=== PATIENT | male | born 1965 | race Caucasian/White ===

== ENCOUNTER 2016-08-04 20:09 | Emergency (ER) | payer BC ==
[2016-08-04 20:24] VITALS: TEMP 98.2; BMI 37.1
--- NOTE | 2016-08-04 20:33 | PDOC ---
History of Present Illness - General History Source: Patient Exam Limitations: No Limitations - History of Present Illness Initial Comments: 08/04/16 21:14 The patient is a 52-year-old male, with no significant past medical history, who presents to the ED with weakness, dizziness, headache, and HTN. The patient states that he began feeling weak and dizzy yesterday but his symptoms progressively worsened today. Pt also reports experiencing shortness of breath and headache. He does admit that he does not drink enough water and only eats one meal a day for weight loss. Last meal was soup this morning. The patient denies any fever, chills, nausea, vomiting, diarrhea, or abdominal pain. The patient denies any chest pain. Family Hx: hypertension, hyperlipidemia, and diabetes. <Deidre Hernandez - Last Filed: 08/04/16 21:14> <Roya Lopez - Last Filed: 08/05/16 05:36> - General Chief Complaint: Shortness of Breath Stated Complaint: WEAK/DIFF BRETHING/DIZZY Time Seen by Provider: 08/04/16 20:33 Past History <Deidre Hernandez - Last Filed: 08/04/16 21:14> - Past Medical History Other medical history: None - Immunization History Immunization Up to Date: No - Psycho/Social/Smoking Cessation Hx Anxiety: No Suicidal Ideation: No Smoking History: Never smoked Have you smoked in the past 12 months: No Information on smoking cessation initiated: No Hx Alcohol Use: Yes Drug/Substance Use Hx: No Substance Use Type: Alcohol <Roya Lopez - Last Filed: 08/05/16 05:36> - Past Medical History Allergies/Adverse Reactions: Allergies Allergy/AdvReac Type Severity Reaction Status Date / Time No Known Allergies Allergy Verified 08/04/16 20:24 Home Medications: Ambulatory Orders NK [No Known Home Medication] 08/04/16 Review of Systems - Review of Systems Able to Perform ROS?: Yes Comments:: 08/04/16 21:15 CONSTITUTIONAL: Present: generalized weakness Absent: fever, chills, diaphoresis, malaise, loss of appetite HEENT: Absent: rhinorrhea, nasal congestion, throat pain, throat swelling, difficulty swallowing, mouth swelling, ear pain, eye pain, visual Changes CARDIOVASCULAR: Absent: chest pain, syncope, palpitations, irregular heart rate, lightheadedness , peripheral edema RESPIRATORY: Present: shortness of breath Absent: cough, dyspnea with exertion, orthopnea, wheezing, stridor, hemoptysis GASTROINTESTINAL: Absent: abdominal pain, abdominal distension, nausea, vomiting, diarrhea, constipation, melena, hematochezia GENITOURINARY: Absent: dysuria, frequency, urgency, hesitancy, hematuria, flank pain, genital pain MUSCULOSKELETAL: Absent: myalgia, arthralgia, joint swelling SKIN: Absent: rash, itching, pallor HEMATOLOGIC/IMMUNOLOGIC: Absent: easy bleeding, easy bruising, lymphadenopathy, frequent infections ENDOCRINE: Absent: unexplained weight gain, unexplained weight loss, heat intolerance, cold intolerance NEUROLOGIC: Present: headache, dizziness Absent: focal weakness or paresthesias, unsteady gait, seizure, mental status changes, bladder or bowel incontinence PSYCHIATRIC: Absent: anxiety, depression, suicidal or homicidal ideation, hallucinations. <Deidre Hernandez - Last Filed: 08/04/16 21:14> *Physical Exam - Vital Signs Last Vital Signs Temp Pulse Resp BP Pulse Ox 98.2 F 78 20 155/106 99 08/04/16 20:20 08/04/16 20:20 08/04/16 20:20 08/04/16 20:20 08/04/16 20:20 - Physical Exam Comments: 08/04/16 21:17 GENERAL: Awake and alert. No acute distress. HEENT: Normocephalic, atraumatic. PERRLA, EOMI. No conjunctival pallor. Sclera are non- icteric. Moist mucous membranes. Oropharynx is clear. NECK: Supple. Full ROM. No JVD. Carotid pulses 2+ and symmetric, without bruits. No thyromegaly. No lymphadenopathy. CARDIOVASCULAR: Regular rate and rhythm. No murmurs, rubs, or gallops. Distal pulses are 2+ and symmetric. PULMONARY: No evidence of respiratory distress. Lungs clear to auscultation bilaterally. No wheezing, rales or rhonchi. ABDOMINAL: Soft. Non-tender. Non-distended. No rebound or guarding. No organomegaly. Normoactive bowel sounds. MUSCULOSKELETAL Normal range of motion at all joints. No bony deformities or tenderness. No CVA tenderness. EXTREMITIES: No cyanosis. No clubbing. No edema. No calf tenderness. SKIN: Warm and dry. Normal capillary refill. No rashes. No jaundice. NEUROLOGICAL: Alert, awake, appropriate. <Deidre Hernandez - Last Filed: 08/04/16 21:14> - Vital Signs Last Vital Signs Temp Pulse Resp BP Pulse Ox 98.2 F 78 20 155/106 99 08/04/16 20:20 08/04/16 20:20 08/04/16 20:20 08/04/16 20:20 08/04/16 20:20 <Roya Lopez - Last Filed: 08/05/16 05:36> ED Treatment Course - LABORATORY CBC & Chemistry Diagram: 08/04/16 22:44 08/04/16 22:44 <Roya Lopez - Last Filed: 08/05/16 05:36> Medical Decision Making - Medical Decision Making 08/04/16 21:09 Pt comes with weakness, headache, dizziness, HTN. He is on a self imposed diet, eating only a meal a day and not drinking much food. He is overweight and has a fam hx of HTN, DM high cholesterol. Pt has no PMD. 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 Pt will have CXR, EkG and labs and I will treat with a dose of diovan in the ER. He will be asked to follow with Medicine clinic/PMD. 08/05/16 05:32 EKG demonstrates supraventriculat premature complexes. I explained to patient and his that he ought to remain for observation on telemetry due to his symptoms couple with the arrhythmia. Pt however feels much better and he wants to go home.. Pt admised to get a holter monitor. I explained to the patient that his blood pressure will be treated here, however I will not send him home with a prescription, as he must be diagnosed on 3 separate occasions with HTN. Pt will be asked to follow with cardiology and for holter monitoring. <Roya Lopez - Last Filed: 08/05/16 05:36> *DC/Admit/Observation/Transfer - Attestations Scribe Attestion: 08/04/16 21:18 Documentation prepared by Deidre Hernandez, acting as medical staff physician for Roya Lopez MD. <Deidre Hernandez - Last Filed: 08/04/16 21:14> - Discharge Dispostion Admit: No <Roya Lopez - Last Filed: 08/05/16 05:36> Diagnosis at time of Disposition: Atypical chest pain, Premature contractions, supraventricular - Discharge Dispostion Disposition: HOME Condition at time of disposition: Stable - Referrals Referrals: Mina Brewer MD [Staff Physician] - - Patient Instructions Printed Discharge Instructions: DI for Atypical Chest Pain, DI for Ambulatory Cardiac Monitoring
[2016-08-04] MEDS ORDERED: VALSARTAN 40 MG TABLET (FP) PO ONE (21:07)
[2016-08-04] MEDS ORDERED: VALSARTAN 80 MG TABLET (UD) ONE (22:41)
[2016-08-04 23:04] LABS: URINE APPEARANCE CLEAR; URINE BILIRUBIN NEGATIVE (NEGATIVE); URINE COLOR STRAW; URINE GLUCOSE (UA) NEGATIVE (NEGATIVE); URINE KETONE NEGATIVE (NEGATIVE); URINE LEUK ESTERASE NEGATIVE (NEGATIVE); URINE NITRITE NEGATIVE (NEGATIVE); URINE PROTEIN NEGATIVE (NEGATIVE); URINE UROBILINOGEN NEGATIVE E.U./dl (0.2-1.0)
[2016-08-04 23:04] LABS: BASOPHIL 0.7 % (0-2.0); EOSINOPHIL 1.3 % (0-4.5); MCH 29.5 pg (25.7-33.7); MCHC 32.8 g/dl (32.0-35.9); MEAN CELL VOLUME 89.7 fl (80-96); NEUTROPHILS 76.7 % (42.8-82.8); PLATELET COUNT 196 K/MM3 (134-434); RDW 13.6 % (11.9-15.9); WHITE BLOOD COUNT 10.2 K/mm3 (4.0-10.0)
[2016-08-04 23:22] LABS: URINE BLOOD 1+ (NEGATIVE)
[2016-08-04 23:23] LABS: INR 1.11 (0.82-1.09); PROTHROMBIN TIME (PATIENT) 12.2 SEC (9.98-11.88)
[2016-08-04 23:26] LABS: URINE MUCUS RARE; URINE RBC 2 /hpf (0-3); URINE WBC <1 /hpf (3-5)
[2016-08-04 23:29] LABS: ALBUMIN 3.5 g/dl (3.4-5.0); ANION GAP 12 (8-16); BILIRUBIN,TOTAL 0.4 mg/dL (0.2-1.0); CALCIUM 8.5 mg/dL (8.5-10.1); CO2 24 mmol/L (21-32); COCKROFT - GAULT 143.28; CREATININE 0.9 mg/dL (0.7-1.3); GLUCOSE,RANDOM 78 mg/dL (74-106); SGOT/AST 13 U/L (15-37); SGPT/ALT 20 U/L (12-78); TOT PROT 6.8 g/dl (6.4-8.2)
[2016-08-04 23:31] LABS: ALK PHOS 61 U/L (45-117); TROPONIN I < 0.02 ng/ml (0.00-0.05)
[2016-08-05 00:59] VITALS: BP 147/83; PULSE 75
--- NOTE | 2016-08-05 11:23 | EKG ---
Test Reason : Blood Pressure : / mmHG Vent. Rate : 063 BPM Atrial Rate : 063 BPM P-R Int : 152 ms QRS Dur : 094 ms QT Int : 420 ms P-R-T Axes : 053 060 051 degrees QTc Int : 429 ms SINUS RHYTHM WITH PREMATURE SUPRAVENTRICULAR COMPLEXES OTHERWISE NORMAL ECG NO PREVIOUS ECGS AVAILABLE Confirmed by BRYNN RODRIGUEZ, JIMMIE ([id number]) on 08/05/2016 11:23:04 AM Referred By: Confirmed By:JIMMIE SWAIN MD
== END 2016-08-05 01:00 | disposition home or self-care (01) ==
LOC: SUPCPDRO 20:09 → JER 20:09
DX: R07.89 Other chest pain (principal); I47.1 Supraventricular tachycardia
CPT/HCPCS: 36415; 71020-TC; 80053; 81003; 81015; 82465; 82550; 83880; 84478; 84484; 85025; 85610; 85730; 93005; 93010; 99282-25

== ENCOUNTER 2016-08-05 21:17 | Observation (INO) | payer BC ==
--- NOTE | 2016-08-05 21:50 | PDOC ---
History of Present Illness - General History Source: Patient Exam Limitations: No Limitations - History of Present Illness Initial Comments: 08/05/16 22:32 The patient is a 51 year old male, with no significant past medical history, who presents to the ED with weakness, dizziness, headache, and HTN. Patient was seen in the [facility] yesterday with the same complaint. As per , the patient has had a high BP of diastolic of 94. Patient reports occipital headache and neck pain during the episodes of dizziness. He reports 2 episodes of dizziness today. Patient states that he started to feel dizzy 3 days ago and it worsened on . The patient denies any fever, chills, nausea, vomiting, diarrhea, or abdominal pain. The patient denies any chest pain or palpitations. He denies visual changes or room spinning. Family Hx: [place] in 80s father. SH: non smoker <Lana Lindsey - Last Filed: 08/05/16 22:54> - General History Source: Patient, Family Exam Limitations: No Limitations <Brielle Barcenas - Last Filed: 08/05/16 23:55> - General Chief Complaint: Lightheaded Stated Complaint: WEAK/DIZZINESS/BP PROBLEM Time Seen by Provider: 08/05/16 21:23 Past History <Lana Lindsey - Last Filed: 08/05/16 22:54> - Immunization History Immunization Up to Date: No - Psycho/Social/Smoking Cessation Hx Anxiety: No Suicidal Ideation: No Smoking History: Never smoked Have you smoked in the past 12 months: No Hx Alcohol Use: Yes Drug/Substance Use Hx: No Substance Use Type: Alcohol <Brielle Barcenas - Last Filed: 08/05/16 23:55> - Past Medical History Allergies/Adverse Reactions: Allergies Allergy/AdvReac Type Severity Reaction Status Date / Time No Known Allergies Allergy Verified 08/05/16 22:22 Home Medications: Ambulatory Orders NK [No Known Home Medication] 08/04/16 Review of Systems - Review of Systems Able to Perform ROS?: Yes Comments:: 08/05/16 22:33 GENERAL/CONSTITUTIONAL: No: fever, chills, weakness, loss of appetite. HEAD, EYES, EARS, NOSE AND THROAT: No: change in vision, ear pain, discharge, sore throat, throat swelling. CARDIOVASCULAR: No: chest pain, palpitations, syncope RESPIRATORY: No: cough, shortness of breath, wheezing, hemoptysis, stridor. GASTROINTESTINAL: No: nausea, vomiting, abdominal cramping, diarrhea, rectal bleeding, constipation. GENITOURINARY: No: dysuria, hematuria, frequency, urgency, flank pain. MUSCULOSKELETAL: No: back pain, neck pain, joint pain, muscle swelling or pain SKIN: No: lesions, pallor, rash or easy bruising. NEUROLOGIC: +lightheadedness, headache No: vertigo, paresthesias, weakness ENDOCRINE: No: unexplained weight gain or loss HEMATOLOGIC/LYMPHATIC: No: anemia, easy bleeding, swelling nodes <Lana Lindsey - Last Filed: 08/05/16 22:54> *Physical Exam - Vital Signs Last Vital Signs Temp Pulse Resp BP Pulse Ox 98 F 76 18 161/90 99 08/05/16 21:27 08/05/16 21:27 08/05/16 21:27 08/05/16 21:27 08/05/16 21:27 - Physical Exam Comments: 08/05/16 22:34 GENERAL: The patient is in no acute distress. HEAD: Normal with no signs of trauma. EYES: PERRLA, EOMI, sclera anicteric, conjunctiva clear. ENT: Ears normal, nares patent, oropharynx clear without exudates. Moist mucous membranes. NECK: Normal range of motion, supple without lymphadenopathy, JVD, or masses. LUNGS: Breath sounds equal, clear to auscultation bilaterally. No wheezes, and no crackles. HEART: +Irregular rate and rhythm, normal S1 and S2 without murmur, rub or gallop. ABDOMEN: Soft, nontender, normoactive bowel sounds. No guarding, no rebound. EXTREMITIES: Normal range of motion, no edema. No clubbing or cyanosis. No erythema, or tenderness. NEUROLOGICAL: Cranial nerves II through XII grossly intact. Normal speech. No focal neurological deficits. MUSCULOSKELETAL: Back nontender to palpation, no CVA tenderness SKIN: Warm, Dry, normal turgor, no rashes or lesions noted. <Lana Lindsey - Last Filed: 08/05/16 22:54> - Vital Signs Last Vital Signs Temp Pulse Resp BP Pulse Ox 98 F 76 18 161/90 99 08/05/16 21:27 08/05/16 21:27 08/05/16 21:27 08/05/16 21:27 08/05/16 21:27 <Brielle Barcenas - Last Filed: 08/05/16 23:55> Heart Score/ECG Review #1 ECG reviewed & interpreted by me at: 23:12 General ECG Interpretation: Sinus Rhythm, Normal Rate, Normal Intervals, No acute ischemic changes <Brielle Barcenas - Last Filed: 08/05/16 23:55> ED Treatment Course - LABORATORY CBC & Chemistry Diagram: 08/05/16 22:01 08/05/16 22:01 - ADDITIONAL ORDERS Additional order review: 08/05/16 22:01 RBC 4.64 MCV 89.5 MCHC 33.2 RDW 13.2 MPV 9.4 Neutrophils % 76.7 Lymphocytes % 15.4 Monocytes % 5.7 Eosinophils % 1.3 Basophils % 0.9 <Lana Lindsey - Last Filed: 08/05/16 22:54> - LABORATORY CBC & Chemistry Diagram: 08/05/16 22:01 08/05/16 22:01 <Brielle Barcenas - Last Filed: 08/05/16 23:55> Medical Decision Making - Medical Decision Making 08/05/16 21:50 A portion of this note was documented by scribe services under my direction. I have reviewed the details of the note, within reason, and agree with the documentation with the following case summary and management plan written by me. Nursing documentation reviewed and incorporated into medical decision making This is a 51 yo M who presents to the ER again with a complaint of elevated blood pressure and dizziness Pt states his symptoms began 2 days ago He notes intermittent dizziness Today, he had 2 episodes No head trauma No tinnitus No vertigo Pt notes that he sometimes has dizziness 08/05/16 22:59 Laboratory Tests 08/04/16 08/04/16 08/05/16 22:44 22:44 22:01 WBC 10.2 H 8.7 Hgb 13.2 13.8 Hct 40.2 41.5 Plt Count 196 201 BUN 11 Creatinine 0.9 Creatine Kinase 65 Troponin I < 0.02 08/05/16 22:01 WBC Hgb Hct Plt Count BUN 11 Creatinine 0.9 Creatine Kinase 68 Troponin I < 0.02 08/05/16 23:12 Upon re assessment Pt states he has had a frontal headache since noon He took tylenol This has improved his symptoms 08/05/16 23:54 Case reviewed with hospitalist Will place on observation <Brielle Barcenas - Last Filed: 08/05/16 23:55> *DC/Admit/Observation/Transfer - Attestations Scribe Attestion: 08/05/16 22:34 Documentation prepared by JOHAN Sawyer, acting as biomedical engineering aide for Brielle Barcenas MD. <Lana Lindsey - Last Filed: 08/05/16 22:54> - Discharge Dispostion Admit: Yes <Brielle Barcenas - Last Filed: 08/05/16 23:55> Diagnosis at time of Disposition: Dizziness - Discharge Dispostion Condition at time of disposition: Stable
[2016-08-05 22:21] LABS: BASOPHIL 0.9 % (0-2.0); EOSINOPHIL 1.3 % (0-4.5); MCH 29.7 pg (25.7-33.7); MCHC 33.2 g/dl (32.0-35.9); MEAN CELL VOLUME 89.5 fl (80-96); MEAN PLT VOLUME 9.4 fl (7.5-11.1); NEUTROPHILS 76.7 % (42.8-82.8); PLATELET COUNT 201 K/MM3 (134-434); RDW 13.2 % (11.9-15.9); WHITE BLOOD COUNT 8.7 K/mm3 (4.0-10.0)
[2016-08-05 22:45] LABS: ALBUMIN 3.7 g/dl (3.4-5.0); ANION GAP 10 (8-16); BILIRUBIN,TOTAL 0.4 mg/dL (0.2-1.0); CALCIUM 8.9 mg/dL (8.5-10.1); CO2 27 mmol/L (21-32); COCKROFT - GAULT 137; CREATININE 0.9 mg/dL (0.7-1.3); GLUCOSE,RANDOM 90 mg/dL (74-106); SGOT/AST 17 U/L (15-37); SGPT/ALT 27 U/L (12-78); TOT PROT 7.5 g/dl (6.4-8.2)
[2016-08-05 22:48] LABS: ALK PHOS 68 U/L (45-117); TROPONIN I < 0.02 ng/ml (0.00-0.05)
[2016-08-05] MEDS ORDERED: ACETAMINOPHEN 325 MG TABLET (FP) PO PRN (23:40)
--- NOTE | 2016-08-05 23:46 | HP ---
<Channing Knowles - Last Filed: 08/06/16 00:32> CHIEF COMPLAINT: Weakness HISTORY OF PRESENT ILLNESS: The patient is a 51 year old male, who presents to the ED with weakness, dizziness, headache, and HTN. Patient was seen in the [facility] yesterday with the same complaint. As per , the patient has had a high BP of diastolic of 94. Patient reports occipital headache and neck pain during the episodes of dizziness. He reports 2 episodes of dizziness today. Patient states that he started to feel dizzy 3 days ago and it worsened on . The patient denies any fever, chills, nausea, vomiting, diarrhea, or abdominal pain. The patient denies any chest pain or palpitations. He denies visual changes or room spinning. Recent Travel: None PAST MEDICAL HISTORY: No significant past medical history PAST SURGICAL HISTORY: Noncontributory Social History: Smoking: Denied Alcohol: Denied Drugs: Denied Family History: Father: [place] in his 80s Allergies: No Known Allergies Allergy (Verified 08/05/16 22:22) HOME MEDICATIONS: Home Medications Medication Instructions Recorded NK [No Known Home Medication] 08/04/16 REVIEW OF SYSTEMS CONSTITUTIONAL: Present: Generalized weakness Absent: fever, chills, diaphoresis, malaise, loss of appetite, weight change HEENT: Absent: rhinorrhea, nasal congestion, throat pain, throat swelling, difficulty swallowing, mouth swelling, ear pain, eye pain, visual changes CARDIOVASCULAR: Present: Hypertension, lightheadedness. Absent: chest pain, syncope, palpitations, irregular heart rate, peripheral edema RESPIRATORY: Absent: cough, shortness of breath, dyspnea with exertion, orthopnea, wheezing, stridor, hemoptysis GASTROINTESTINAL: Absent: abdominal pain, abdominal distension, nausea, vomiting, diarrhea, constipation, melena, hematochezia GENITOURINARY: Absent: dysuria, frequency, urgency, hesitancy, hematuria, flank pain, genital pain MUSCULOSKELETAL: Absent: myalgia, arthralgia, joint swelling, back pain, neck pain SKIN: Absent: rash, itching, pallor HEMATOLOGIC/IMMUNOLOGIC: Absent: easy bleeding, easy bruising, lymphadenopathy, frequent infections ENDOCRINE: Absent: unexplained weight gain, unexplained weight loss, heat intolerance, cold intolerance NEUROLOGIC: Present: Headache, dizziness Absent: Focal weakness or paresthesias, unsteady gait, seizure, mental status changes, bladder or bowel incontinence PSYCHIATRIC: Absent: anxiety, depression, suicidal or homicidal ideation, hallucinations. PHYSICAL EXAMINATION Vital Signs - 24 hr 08/05/16 08/05/16 21:23 21:27 Temperature 98 F Pulse Rate 76 Respiratory 18 Rate Blood Pressure 161/90 O2 Sat by Pulse 99 99 Oximetry (%) GENERAL: Awake, alert, and fully oriented, in no acute distress. HEAD: Normal with no signs of trauma. EYES: Pupils equal, round and reactive to light, extraocular movements intact, sclera anicteric, conjunctiva clear. No lid lag. EARS, NOSE, THROAT: Ears normal, nares patent, oropharynx clear without exudates. Moist mucous membranes. NECK: Normal range of motion, supple without lymphadenopathy, JVD, or masses. LUNGS: Breath sounds equal, clear to auscultation bilaterally. No wheezes, and no crackles. No accessory muscle use. HEART: (+) Irregular rate and rhythm, normal S1 and S2 without murmur, rub or gallop. ABDOMEN: Soft, nontender, not distended, normoactive bowel sounds, no guarding, no rebound, no masses. No hepatomegaly or splenomegaly. MUSCULOSKELETAL: Normal range of motion at all joints. No bony deformities or tenderness. No CVA tenderness. UPPER EXTREMITIES: (+) 2+ pulses, well-perfused. No cyanosis. No clubbing. No peripheral edema. Erythema of the hands LOWER EXTREMITIES: (+) Varicose veins lower extremity otherwise normal capillary refill, No calf tenderness. No edema. NEUROLOGICAL: Cranial nerves II-XII intact. Normal speech. Normal gait. PSYCHIATRIC: Cooperative. Good eye contact. Appropriate mood and affect. SKIN: Warm, dry, normal turgor, no rashes or lesions noted, normal capillary refill. Laboratory Results - last 24 hr 08/05/16 08/05/16 22:01 22:01 WBC 8.7 RBC 4.64 Hgb 13.8 Hct 41.5 MCV 89.5 MCHC 33.2 RDW 13.2 Plt Count 201 MPV 9.4 Neutrophils % 76.7 Lymphocytes % 15.4 Monocytes % 5.7 Eosinophils % 1.3 Basophils % 0.9 Sodium 141 Potassium 4.1 Chloride 104 Carbon Dioxide 27 Anion Gap 10 BUN 11 Creatinine 0.9 Creat Clearance w eGFR > 60 Random Glucose 90 Calcium 8.9 Total Bilirubin 0.4 AST 17 D ALT 27 D Alkaline Phosphatase 68 Creatine Kinase 68 Troponin I < 0.02 Total Protein 7.5 Albumin 3.7 ASSESSMENT/PLAN: Dizziness r/o secondary to arrhythmia - TSH - Carotid doppler - CMP - IVF for hydration ns 100 cc/ HR - Acetaminophen 650 mg PO Q6H PRN - Lisinopril 2.5 mg PO daily - Hydrochlorothiazide 25 mg PO once - Cardiology consult -Vitals Q4H High blood pressure r/o HTN - Lipid profile - Lactated ringers 100 cc/hr -Erythematous rash possible allergy - CRP - ESR Place in tele obs. Documentation prepared by Channing Knowles, acting as medical coding auditor for Dr. Tiffany Coulter MD. <Tiffany Coulter - Last Filed: 08/10/16 00:39> Problem List - Problem (1) Dizziness Code(s): R42 - DIZZINESS AND GIDDINESS (2) Rash and nonspecific skin eruption Code(s): R21 - RASH AND OTHER NONSPECIFIC SKIN ERUPTION Visit type - Emergency Visit Emergency Visit: Yes ED Registration Date: 08/05/16 Care time: The patient presented to the Emergency Department on the above date and was hospitalized for further evaluation of their emergent condition. - New Patient This patient is new to me today: Yes Date on this admission: 08/05/16 - Critical Care Critical Care patient: No
[2016-08-05] MEDS: LACTATED RINGERS SOLUTION 1,000 ML IV SCH (23:47)
[2016-08-05] MEDS ORDERED: HYDROCHLOROTHIAZIDE 25 MG TABLET (FP) PO ONE (23:57)
[2016-08-06] MEDS ORDERED: HYDROCHLOROTHIAZIDE 25 MG TABLET (FP) ONE (00:30)
[2016-08-06] MEDS ORDERED: ACETAMINOPHEN 325 MG TABLET (FP) ONE (02:13)
[2016-08-06] MEDS: LISINOPRIL 5 MG TABLET (FP) PO SCH (10:00)
[2016-08-06] MEDS: LACTATED RINGERS SOLUTION 1,000 ML IV SCH (10:01)
[2016-08-06 12:30] LABS: C-REACTIVE PROTEIN < 0.3 MG/DL (0.00-0.3)
[2016-08-06 12:31] LABS: CHOLESTEROL 180 mg/dL (50-200); LDL CHOLESTEROL (ONLY SJRH) 115 mg/dL (5-100)
[2016-08-06 12:32] LABS: ALBUMIN 3.4 g/dl (3.4-5.0); ANION GAP 6 (8-16); CALCIUM 8.4 mg/dL (8.5-10.1); CO2 30 mmol/L (21-32); COCKROFT - GAULT 137; CREATININE 0.9 mg/dL (0.7-1.3); GLUCOSE,RANDOM 101 mg/dL (74-106); SGOT/AST 17 U/L (15-37); SGPT/ALT 24 U/L (12-78)
[2016-08-06 12:35] LABS: ALK PHOS 63 U/L (45-117); BILIRUBIN,TOTAL 0.6 mg/dL (0.2-1.0); TOT PROT 6.8 g/dl (6.4-8.2); TROPONIN I < 0.02 ng/ml (0.00-0.05)
[2016-08-06 12:41] LABS: THYROID STIMULATING HORMONE 2.44 uIU/ml (0.358-3.74)
--- NOTE | 2016-08-06 13:24 | CON.CARD ---
Consult Consult Specialty:: Cardiology Referred by:: Hospitalist Reason for Consultation:: Cardiac evaluation - History of Present Illness Chief Complaint: Weakness and headache History of Present Illness: Patient is a 51 year old male with no significant PMH who presents to ED with progressive weakness, dizziness and headache. He was found with an elevated blood pressure. He was seen earlier on Sunday in the ER, but was discharged home after evaluation. He presented again with these complaints and is now being admitted. He denies chest pain, shortness of breath or palpitations. He denies paroxysmal nocturnal dyspnea or orthopnea. He denies fever or chills. He denies prior syncopal episodes. He complains of occipital headache and neck pain. He has not been diagnosed with HTN. Cardiology consultation was called for further evaluation. - History Source History Provided By: Patient, Medical Record Limitations to Obtaining History: No Limitations - Past Medical History Cardio/Vascular: Yes: HTN - Past Surgical History Past Surgical History: Yes: None - Alcohol/Substance Use Hx Alcohol Use: Yes - Smoking History Smoking history: Never smoked Have you smoked in the past 12 months: No Home Medications - Allergies Allergies/Adverse Reactions: Allergies Allergy/AdvReac Type Severity Reaction Status Date / Time No Known Allergies Allergy Verified 08/05/16 22:22 - Home Medications Home Medications: Ambulatory Orders NK [No Known Home Medication] 08/04/16 Family Disease History - Family Disease History Family Disease History: [place]: Father (Colon [place]) Other Family History: HTN, DM, hypercholesterolemia Review of Systems - Review of Systems Constitutional: denies: Chills, Fever Cardiovascular: denies: Chest Pain, Palpitations, Shortness of Breath Respiratory: denies: Cough, Hemoptysis, Orthopnea, PND, SOB, SOB on Exertion Gastrointestinal: denies: Abdominal Pain, Constipation, Diarrhea, Melena, Nausea , Rectal Bleeding, Vomiting Genitourinary: denies: Dysuria Musculoskeletal: denies: Joint Pain Neurological: reports: Dizziness, Headache, Weakness. denies: Confusion, Numbness, Parasthesia, Seizure, Syncope, Tremors, Unsteady Gait Vital Signs: Vital Signs Temperature 97.2 F L 08/06/16 08:40 Pulse Rate 83 08/06/16 08:40 Respiratory Rate 18 08/06/16 08:40 Blood Pressure 118/65 08/06/16 08:40 O2 Sat by Pulse Oximetry (%) 97 08/06/16 06:54 Neck: Yes: Supple Respiratory: Yes: CTA Bilaterally Gastrointestinal: Yes: Normal Bowel Sounds, Soft. No: Tenderness Cardiovascular: Yes: Regular Rate and Rhythm JVD: No Carotid Bruit: No PMI: Non-Displaced Heart Sounds: Yes: S1, S2. No: Gallop Murmur: No: Systolic Murmur, Diastolic Murmur Edema: No - Other Data Labs, Other Data: CBC, BMP 08/06/16 11:49 Troponin, BNP 08/06/16 11:49 Troponin I < 0.02 Laboratory Results - last 24 hr 08/05/16 08/05/16 08/06/16 22:01 22:01 00:03 WBC 8.7 RBC 4.64 Hgb 13.8 Hct 41.5 MCV 89.5 MCHC 33.2 RDW 13.2 Plt Count 201 MPV 9.4 Neutrophils % 76.7 Lymphocytes % 15.4 Monocytes % 5.7 Eosinophils % 1.3 Basophils % 0.9 ESR 9 Sodium 141 Potassium 4.1 Chloride 104 Carbon Dioxide 27 Anion Gap 10 BUN 11 Creatinine 0.9 Creat Clearance w eGFR > 60 Random Glucose 90 Calcium 8.9 Total Bilirubin 0.4 AST 17 D ALT 27 D Alkaline Phosphatase 68 Creatine Kinase 68 Troponin I < 0.02 C-Reactive Protein Total Protein 7.5 Albumin 3.7 Triglycerides Cholesterol Total LDL Cholesterol HDL Cholesterol TSH 08/06/16 08/06/16 08/06/16 11:49 11:49 11:49 WBC RBC Hgb Hct MCV MCHC RDW Plt Count MPV Neutrophils % Lymphocytes % Monocytes % Eosinophils % Basophils % ESR Sodium 139 Potassium 4.0 Chloride 103 Carbon Dioxide 30 Anion Gap 6 L BUN 9 Creatinine 0.9 Creat Clearance w eGFR > 60 Random Glucose 101 Calcium 8.4 L Total Bilirubin 0.6 D AST 17 ALT 24 Alkaline Phosphatase 63 Creatine Kinase Troponin I < 0.02 C-Reactive Protein < 0.3 Total Protein 6.8 Albumin 3.4 Triglycerides 83 Cholesterol 180 Total LDL Cholesterol 115 H HDL Cholesterol 63 H TSH 2.44 Sinus rhythm Echo: Pending Imaging - Results Cat Scan: Report Reviewed (Head CT unremarkable) Ultrasound: Pending (Carotid Doppler) EKG: Report Reviewed Problem List - Problems (1) Dizziness Code(s): R42 - DIZZINESS AND GIDDINESS (2) HTN (hypertension) Code(s): I10 - ESSENTIAL (PRIMARY) HYPERTENSION Qualifiers: Hypertension type: essential hypertension Qualified Code(s): I10 - Essential (primary) hypertension (3) Head ache Code(s): R51 - HEADACHE (4) Weakness Code(s): R53.1 - WEAKNESS Assessment/Plan 1. HTN 2. Headache and dizziness 3. Generalized weakness PLAN: 1. Continue Prinivil and uptitrate per BP 2. Carotid Doppler - official result pending 3. Transthoracic echocardiography to assess LV and valvular function 4. Low salt diet and further risk modification including weight management Further plans are to follow Fabian Rashid MD
[2016-08-06 15:22] VITALS: BMI 28.1
--- NOTE | 2016-08-06 19:57 | PN ---
Physical Exam: SUBJECTIVE: Patient seen and examined. Feels completely better. All symptoms have resolved. Denies headache, dizziness, neck pain, and weakness. Rash resolved after the pillow he was lying on was removed. OBJECTIVE: Vital Signs Period Temp Pulse Resp BP Sys/Ordonez Pulse Ox Last 24 Hr 97.2 F-97.8 F 58-83 18-18 118-148/65-90 97-97 GENERAL: The patient is awake, alert, and fully oriented, in no acute distress. HEAD: Normal with no signs of trauma. EYES: PERRL, extraocular movements intact, sclera anicteric, conjunctiva clear. No ptosis. LUNGS: Breath sounds equal, clear to auscultation bilaterally, no wheezes, no crackles, no accessory muscle use. HEART: Regular rate and rhythm, S1, S2 without murmur, rub or gallop. ABDOMEN: Soft, nontender, nondistended, normoactive bowel sounds, no guarding, no rebound EXTREMITIES: 2+ pulses, warm, well-perfused. Left leg is larger than right leg with varicosities. No pain, no redness, no warmth ("chronic for years") NEUROLOGICAL: Cranial nerves II through XII grossly intact. Normal speech, gait not observed. Laboratory Results - last 24 hr 08/06/16 08/06/16 08/06/16 00:03 11:49 11:49 ESR 9 Sodium 139 Potassium 4.0 Chloride 103 Carbon Dioxide 30 Anion Gap 6 L BUN 9 Creatinine 0.9 Creat Clearance w eGFR > 60 Random Glucose 101 Calcium 8.4 L Total Bilirubin 0.6 D AST 17 ALT 24 Alkaline Phosphatase 63 Troponin I < 0.02 C-Reactive Protein < 0.3 Total Protein 6.8 Albumin 3.4 Triglycerides Cholesterol Total LDL Cholesterol HDL Cholesterol TSH 2.44 08/06/16 11:49 ESR Sodium Potassium Chloride Carbon Dioxide Anion Gap BUN Creatinine Creat Clearance w eGFR Random Glucose Calcium Total Bilirubin AST ALT Alkaline Phosphatase Troponin I C-Reactive Protein Total Protein Albumin Triglycerides 83 Cholesterol 180 Total LDL Cholesterol 115 H HDL Cholesterol 63 H TSH Active Medications Generic Name Dose Route Start Last Admin Trade Name Freq PRN Reason Stop Dose Admin Acetaminophen 650 mg 08/05/16 23:40 08/06/16 02:16 Tylenol - PO 650 mg Q6H PRN Administration FEVER OR PAIN Lactated Ringer's 1,000 mls @ 100 mls/hr 08/05/16 23:45 08/06/16 10:01 Lactated Ringers Solution IV 100 mls/hr ASDIR JODY Administration Lisinopril 2.5 mg 08/06/16 10:00 08/06/16 10:00 Prinivil PO 2.5 mg DAILY JODY Administration ASSESSMENT/PLAN 51 year-old male who denies a significant previous medical history presented to the ED on 08/04 and again on 08/05 with complaints of elevated blood pressure, headache, weakness, and dizziness. Patient does not follow regularly with any health care provider but takes his BP on a home machine and the readings have reportedly been elevated. Elevated blood pressure --BP 161/90 on admission, started on low-dose lisinopril, and has improved to 118/65 --patient is overweight, does not adhere to a low sodium diet, drinks a lot of beer --recommend lifestyle changes, exercise, low sodium diet --continue Lisinopril Dizziness/Weakness --CT head negative --serial troponins negative --ECG sinus rhythm --US carotids done, pending dictation --possibly from low volume state as patient has been dieting,does not like to drink fluids; treated with IV fluids --orthostatics ordered --telemetry monitoring --echo tomorrow Headache --has resolved with improved BP and hydration F/E/N Fluids: stop IV fluids; PO intake adequate Electrolytes: replete as indicated Nutrition: low sodium diet; NPO after midnight in case cardiology wants to stress DVT prophylaxis: lovenox, oob, ambulation Dispo: continues to require observation. Full Code. Visit type - Emergency Visit Emergency Visit: Yes ED Registration Date: 08/05/16 Care time: The patient presented to the Emergency Department on the above date and was hospitalized for further evaluation of their emergent condition. - New Patient This patient is new to me today: Yes Date on this admission: 08/08/16 - Critical Care Critical Care patient: No
--- NOTE | 2016-08-07 00:06 | EKG ---
Test Reason : Blood Pressure : / mmHG Vent. Rate : 063 BPM Atrial Rate : 063 BPM P-R Int : 152 ms QRS Dur : 090 ms QT Int : 414 ms P-R-T Axes : 037 042 040 degrees QTc Int : 423 ms SINUS RHYTHM WITH PREMATURE SUPRAVENTRICULAR COMPLEXES OTHERWISE NORMAL ECG WHEN COMPARED WITH ECG OF 05-AUG-2016 22:03, PREMATURE SUPRAVENTRICULAR COMPLEXES ARE NOW PRESENT Confirmed by BRYNN RODRIGUEZ, JIMMIE ([id number]) on 08/07/2016 12:06:02 AM Referred By: Boo BLANCO Confirmed By:JIMMIE SWAIN MD
--- NOTE | 2016-08-07 00:06 | EKG ---
Test Reason : Blood Pressure : / mmHG Vent. Rate : 069 BPM Atrial Rate : 069 BPM P-R Int : 148 ms QRS Dur : 092 ms QT Int : 394 ms P-R-T Axes : 063 053 056 degrees QTc Int : 422 ms NORMAL SINUS RHYTHM NORMAL ECG WHEN COMPARED WITH ECG OF 05-AUG-2016 00:30, PREMATURE SUPRAVENTRICULAR COMPLEXES ARE NO LONGER PRESENT Confirmed by JIMMIE SWAIN MD ([id number]) on 08/07/2016 12:06:35 AM Referred By: Confirmed By:JIMMIE SWAIN MD
[2016-08-07 07:35] LABS: BASOPHIL 0.8 % (0-2.0); EOSINOPHIL 2.2 % (0-4.5); MCH 30.4 pg (25.7-33.7); MCHC 33.9 g/dl (32.0-35.9); MEAN CELL VOLUME 89.9 fl (80-96); MEAN PLT VOLUME 10.1 fl (7.5-11.1); NEUTROPHILS 70.9 % (42.8-82.8); PLATELET COUNT 185 K/MM3 (134-434); RDW 13.4 % (11.9-15.9); WHITE BLOOD COUNT 9.8 K/mm3 (4.0-10.0)
[2016-08-07 08:17] LABS: ALBUMIN 3.5 g/dl (3.4-5.0); ALK PHOS 63 U/L (45-117); ANION GAP 8 (8-16); BILIRUBIN,TOTAL 0.7 mg/dL (0.2-1.0); CALCIUM 8.4 mg/dL (8.5-10.1); CO2 30 mmol/L (21-32); COCKROFT - GAULT 112.13; CREATININE 0.9 mg/dL (0.7-1.3); GLUCOSE,RANDOM 90 mg/dL (74-106); MAGNESIUM 2.2 mg/dL (1.8-2.4); SGOT/AST 22 U/L (15-37); SGPT/ALT 30 U/L (12-78); TOT PROT 6.8 g/dl (6.4-8.2)
[2016-08-07] MEDS: LISINOPRIL 5 MG TABLET (FP) PO SCH (09:41)
--- NOTE | 2016-08-07 11:33 | PN ---
Progress Note, Physician Chief Complaint: Not in distress History of Present Illness: Patient was seen and examined. Awake and alert. Chart was reviewed Denies chest pain, SOB or palpitations - Current Medication List Current Medications: Active Medications Acetaminophen (Tylenol -) 650 mg PO Q6H PRN PRN Reason: FEVER OR PAIN Last Admin: 08/06/16 02:16 Dose: 650 mg Lisinopril (Prinivil) 2.5 mg PO DAILY JODY Last Admin: 08/07/16 09:41 Dose: 2.5 mg - Objective Vital Signs: Vital Signs Temperature 98.2 F 08/07/16 06:34 Pulse Rate 78 08/07/16 06:34 Respiratory Rate 20 08/07/16 06:34 Blood Pressure 139/78 08/07/16 07:13 O2 Sat by Pulse Oximetry (%) 97 08/06/16 15:05 Neck: Yes: Supple Cardiovascular: Yes: Regular Rate and Rhythm, S1, S2 Respiratory: Yes: CTA Bilaterally Gastrointestinal: Yes: Normal Bowel Sounds, Soft. No: Tenderness Edema: No Additional Findings/Remarks: - Review of Systems Constitutional: denies: Fever. denies: Chills Cardiovascular: denies: Chest Pain. denies: Palpitations, Shortness of Breath Respiratory: denies: Cough, Hemoptysis, Orthopnea, PND, SOB Gastrointestinal: reports: Diarrhea. denies: Abdominal Pain, Constipation, Melena, Nausea, Rectal Bleeding, Vomiting Genitourinary: denies: Dysuria Neurological: denies: Dizziness, Headache, Syncope, Tremors Labs: CBC, BMP 08/07/16 05:35 08/07/16 05:35 Problem List - Problems (1) Dizziness Code(s): R42 - DIZZINESS AND GIDDINESS (2) HTN (hypertension) Code(s): I10 - ESSENTIAL (PRIMARY) HYPERTENSION Qualifiers: Hypertension type: essential hypertension Qualified Code(s): I10 - Essential (primary) hypertension (3) Head ache Code(s): R51 - HEADACHE (4) Weakness Code(s): R53.1 - WEAKNESS Assessment/Plan 1. HTN 2. Headache and dizziness 3. Generalized weakness PLAN: 1. Continue Prinivil and uptitrate per BP 2. Carotid Doppler - no evidence of carotid artery disease 3. Transthoracic echocardiography to assess LV and valvular function 4. Low salt diet and further risk modification including weight management Further plans are to follow Fabian Rashid MD
--- NOTE | 2016-08-07 12:53 | PN ---
Physical Exam: SUBJECTIVE: Patient seen and examined. Denies any further headache. Mild dizziness earlier today, but resolved quickly and not as severe as yesterday. Denies chest pain, SOB. OBJECTIVE: Vital Signs - 24 hr 3 08/06/16 08/06/16 08/06/16 08/06/16 08/07/16 08/07/16 08/07/16 15:05 15:09 15:32 20:00 02:00 06:34 07:13 Temperature 97.2 F L 98.4 F 98.5 F 98.2 F Pulse Rate 72 73 74 67 78 Respiratory 18 18 18 18 20 20 Rate Blood Pressure 118/65 129/77 138/78 128/78 130/86 139/78 Blood Pressure [Left side Standing] O2 Sat by Pulse 97 Oximetry (%) GENERAL: The patient is awake, alert, and fully oriented, in no acute distress. HEAD: Normal with no signs of trauma. EYES: PERRL, extraocular movements intact, sclera anicteric, conjunctiva clear. No ptosis. ENT: Ears normal, nares patent, oropharynx clear without exudates, moist mucous membranes. NECK: Trachea midline, full range of motion, supple. LUNGS: Breath sounds equal, clear to auscultation bilaterally, no wheezes, no crackles, no accessory muscle use. HEART: Regular rate and rhythm, S1, S2 without murmur, rub or gallop. ABDOMEN: Soft, nontender, nondistended, normoactive bowel sounds, no guarding, no rebound, no hepatosplenomegaly, no masses. EXTREMITIES: 2+ pulses, warm, well-perfused, no edema. NEUROLOGICAL: Cranial nerves II through XII grossly intact. Normal speech, gait not observed. PSYCH: Normal mood, normal affect. SKIN: Warm, dry, normal turgor, no rashes or lesions noted Laboratory Results - last 24 hr 3 08/07/16 08/07/16 05:35 05:35 WBC 9.8 RBC 4.52 Hgb 13.8 Hct 40.7 MCV 89.9 MCHC 33.9 RDW 13.4 Plt Count 185 MPV 10.1 Neutrophils % 70.9 Lymphocytes % 19.0 D Monocytes % 7.1 Eosinophils % 2.2 Basophils % 0.8 Sodium 141 Potassium 3.7 Chloride 103 Carbon Dioxide 30 Anion Gap 8 BUN 12 D Creatinine 0.9 Creat Clearance w eGFR > 60 Random Glucose 90 Calcium 8.4 L Magnesium 2.2 Total Bilirubin 0.7 AST 22 D ALT 30 D Alkaline Phosphatase 63 Total Protein 6.8 Albumin 3.5 Active Medications 3 Generic Name Dose Route Start Last Admin Trade Name Vesta PRN Reason Stop Dose Admin Acetaminophen 650 mg 08/05/16 23:40 08/06/16 02:16 Tylenol - PO 650 mg Q6H PRN Administration FEVER OR PAIN Lisinopril 2.5 mg 08/06/16 10:00 08/07/16 09:41 Prinivil PO 2.5 mg DAILY JODY Administration Imaging: Bilateral carotid doppler ultrasound Clinical information given: dizziness The study was performed utilizing grayscale as well as color flow and spectral Doppler sonography. There is no sonographic evidence of a hemodynamically significant extracranial carotid artery stenosis (reported ultrasound sensitivity 90%). There is probable mild intimal thickening at the level of the carotid artery bifurcations. The vertebral arteries appear demonstrating antegrade flow. No obvious waveform abnormality is noted. Impression: There is no Doppler evidence of a high-grade carotid artery stenosis. Patent vertebral arteries. Cranial CT without contrast Clinical information: headache, dizziness No intracranial hemorrhage is seen. There is no discrete infarct within the limitations of CT. No obvious mass lesion is identified. There is no extra- axial fluid collection. The ventricles and cisterns appear unremarkable. The calvarium appears intact. The partially imaged paranasal sinuses demonstrate no opacification. Impression: No CT evidence of acute intracranial pathology. ASSESSMENT/PLAN: 51 year-old male who denies a significant previous medical history presented to the ED on 08/04 and again on 08/05 with complaints of elevated blood pressure, headache, weakness, and dizziness. Patient does not follow regularly with any health care provider but takes his BP on a home machine and the readings have reportedly been elevated. Elevated blood pressure - BP 161/90 on admission, started on low-dose lisinopril, and has improved to 120s-130s/70s-80s - patient is overweight, does not adhere to a low sodium diet, drinks a lot of beer - reinforced importance of diet, exercise, weight loss. - continue Lisinopril Dizziness/Weakness - CT head negative - serial troponins negative - ECG sinus rhythm - carotid doppler without stenosis - possibly from low volume state as patient has been dieting,does not like to drink fluids; responded well to IV fluids - telemetry monitoring revealed no ectopy - echo done, result pending Headache - has resolved with improved BP and hydration F/E/N Fluids: no IV fluids; PO intake adequate Electrolytes: replete as indicated Nutrition: low sodium diet DVT prophylaxis: oob, ambulation Dispo: continues to require observation. Full Code. If echo WNL, would DC in pm. Visit type - Emergency Visit Emergency Visit: Yes ED Registration Date: 08/05/16 Care time: The patient presented to the Emergency Department on the above date and was hospitalized for further evaluation of their emergent condition. - New Patient This patient is new to me today: Yes Date on this admission: 08/07/16 - Critical Care Critical Care patient: No - Discharge Referral Referred to [facility] Med P.C.: No Physician Referral: Ed Virgen MD ([facility])
--- NOTE | 2016-08-07 17:29 | DS ---
Physical Exam: SUBJECTIVE: Patient seen and examined earlier in the day, see progress note for earlier for PE. OBJECTIVE: LABS Laboratory Results - last 24 hr 3 08/07/16 08/07/16 05:35 05:35 WBC 9.8 RBC 4.52 Hgb 13.8 Hct 40.7 MCV 89.9 MCHC 33.9 RDW 13.4 Plt Count 185 MPV 10.1 Neutrophils % 70.9 Lymphocytes % 19.0 D Monocytes % 7.1 Eosinophils % 2.2 Basophils % 0.8 Sodium 141 Potassium 3.7 Chloride 103 Carbon Dioxide 30 Anion Gap 8 BUN 12 D Creatinine 0.9 Creat Clearance w eGFR > 60 Random Glucose 90 Calcium 8.4 L Magnesium 2.2 Total Bilirubin 0.7 AST 22 D ALT 30 D Alkaline Phosphatase 63 Total Protein 6.8 Albumin 3.5 Echo with normal LV size and function. No wall motion abnormalities noted. suggestive impaired LV relaxation, LA mildly dilated, Mild mitral regurg, mild pulmnic valvular regurgitation. No pericardial effusion Carotid doppler: Impression: There is no Doppler evidence of a high-grade carotid artery stenosis. Patent vertebral arteries. HOSPITAL COURSE: Date of Admission:08/05/16 Date of Discharge: 08/07/16 This is a 51 year-old male who denies a significant previous medical history who presented to the ED on 08/04 and again on 08/05 with complaints of elevated blood pressure, headache, weakness, and dizziness. Patient does not follow regularly with any health care provider but takes his BP on a home machine and the readings have reportedly been elevated. Pt was started on lisinopril with improvement in blood pressures to 120s-130s/70s-80s. He was evaluated by cardiology. An echo and carotid dopplers were done; results above. Pt BP remained improved with no further symptoms. Pt was discharged home with recommendations to follow up cardiology and PCP in 1 weeks. He was given the name of a new PCP as he does not have one. Minutes to complete discharge: 35 Discharge Summary Reason For Visit: DIZZINESS Current Active Problems Dizziness (Acute) HTN (hypertension) (Acute) Head ache (Acute) Rash and nonspecific skin eruption (Acute) Weakness (Acute) Condition: Stable - Instructions Diet, Activity, Other Instructions: Return to ED for new, worsening or persistent symptoms. Eat a low salt diet. Increase your daily physical activity. Lose weight. follow up with cardiology and a primary care provider (either Dr. Ahuja, contact info below, or one of your choosing) within 1 week. Referrals: Fabian Rashid MD [Staff Physician] - 1 Week Ed Ahuja MD [Staff Physician] - 1 Week (for Blood pressure and lab work) Disposition: HOME - Home Medications Comprehensive Discharge Medication List: Ambulatory Orders Lisinopril [Prinivil] 2.5 mg PO DAILY #30 tablet 08/07/16 This patient is new to me today: Yes Date on this admission: 08/07/16 Emergency Visit: Yes ED Registration Date: 08/05/16 Care time: The patient presented to the Emergency Department on the above date and was hospitalized for further evaluation of their emergent condition. Critical Care patient: No - Discharge Referral Referred to [facility] Med P.C.: No Physician Referral: Ed Virgen MD ([facility])
[2016-08-07 18:32] VITALS: BP 129/83; PULSE 77; TEMP 99
== END 2016-08-07 18:32 | disposition home or self-care (01) ==
LOC: JER 21:17 → JERBED 23:55 → UNDOADMOB 23:59 → J4W 08-06 18:36
PROVIDERS: ADMIT Internal Medicine; ATTEND Registered Nurse
PROC: 3E0337Z Introduction of Electrolytic and Water Balance Substance into Peripheral Vein, Percutaneous Approach (ICD-10-PCS; principal; 2016-08-05)
DX: R42 Dizziness and giddiness (principal); R21 Rash and other nonspecific skin eruption; I10 Essential (primary) hypertension; R51 Headache; R53.1 Weakness
CPT/HCPCS: 36415; 70450-TC; 80053; 80061; 82550; 83721; 83735; 84443; 84484; 85025; 85651; 86140; 93005; 93010; 93306-TC; 93880-TC; 99284-25; G0378